=== PATIENT | female | born 1980 | race Hispanic/Latino ===

== ENCOUNTER 2021-06-14 12:25 | Inpatient (IN) | payer OTHER, SELFPAY ==
[2021-06-14] MEDS ORDERED: hydrALAZINE 20 MG/ML VIAL SLOW IVP PRN ×2 (13:00→15:53)
[2021-06-14 13:12] VITALS: BMI 42.2
[2021-06-14] MEDS ORDERED: Betamet Acet/Betamet Na Ph 30 MG/5 ML VIAL IM SCH (13:15)
[2021-06-14 13:55] LABS: Hemoglobin 11.3 g/dL (12.0-15.5); Mean Corpuscular HGB CONC 34.1 g/dL (32.0-36.0); Mean Corpuscular Hemoglobin 31.6 pg (27.0-33.0); Mean Corpuscular Volume 92.5 fl (81.6-98.3); Mean Platelet Volume 10.4 fl (7.4-10.4); Platelet Count 249 10x3/uL (150-450); RBC Distribution Width 12.5 % (11.5-14.5); Red Blood Cell (RBC) Count 3.58 10x6/uL (3.90-5.03); White Blood Cell (WBC) Count 8.7 10x3/uL (3.5-10.5)
[2021-06-14 14:11] LABS: ALT (SGPT) 9 U/L (8-55); AST (SGOT) 16 U/L (5-34); Albumin 2.7 g/dL (3.5-5.0); Alkaline Phosphatase 111 U/L (40-110); Anion Gap 12 mmol/L (10-20); BUN (Urea Nitrogen) 11 mg/dL (7.0-18.7); Bilirubin, Total 0.2 mg/dL (0.2-1.2); Calc. Creatinine Clearance 204 mL/min (70-130); Calcium 8.3 mg/dL (7.8-10.44); Carbon Dioxide 21 mmol/L (22-29); Chloride 107 mmol/L (98-107); Globulin 3.5 g/dL (2.4-3.5); Glucose 111 mg/dL (70-105); Potassium 4.2 mmol/L (3.5-5.1); Protein, Total 6.2 g/dL (6.0-8.3); Sodium 136 mmol/L (136-145)
[2021-06-14] MEDS ORDERED: Magnesium Sulfate 20 gm/500 ml 20 GM/500 ML BAG ONE (15:51)
[2021-06-14] MEDS ORDERED: hydrALAZINE 20 MG/ML VIAL ONE (15:57)
[2021-06-14] MEDS ORDERED: Calcium Gluc 4.6 MEQ/10 ML (100 MG/ML) SLOW IVP PRN (16:00)
[2021-06-14] MEDS ORDERED: Magnesium Sulfate 20 GM/WATER 500 ML BAG IVPB SCH (16:00)
[2021-06-14] MEDS ORDERED: hydrALAZINE 20 MG/ML VIAL SLOW IVP SCH (16:00)
[2021-06-14] MEDS ORDERED: Magnesium Sulfate 20 gm/500 ml 20 GM/500 ML BAG IVPB SCH (16:00)
[2021-06-14] MEDS ORDERED: Labetalol 100 MG TAB PO ONE (16:15)
[2021-06-14 16:18] VITALS: BP 177/97
[2021-06-14 16:45] LABS: SARS-CoV-2 NAA Rapid Test Not Detected (NotDetected)
== END 2021-06-14 18:30 | disposition short-term general hospital (02) | DRG 832 ==
LOC: CSHLD/OP 12:25 → CSHLD 15:49
PROVIDERS: ADMIT Family Medicine; ATTEND Family Medicine
DX: O11.3 Pre-existing hypertension with pre-eclampsia, third trimester (principal); O24.113 Pre-existing type 2 diabetes mellitus, in pregnancy, third trimester; O99.212 Obesity complicating pregnancy, second trimester; Z20.822 Contact with and (suspected) exposure to COVID-19; O99.213 Obesity complicating pregnancy, third trimester; E66.01 Morbid (severe) obesity due to excess calories; Z3A.30 30 weeks gestation of pregnancy
CPT/HCPCS: 36415; 36416; 76819; 80053; 85027; J0360; J0702; J3475; U0002